=== PATIENT | female | born 1970 | race Caucasian/White ===

== ENCOUNTER 2019-10-09 11:07 | Emergency (ER) | payer BC ==
[~2019-10-09] VITALS: Ht 157.5 cm; Wt 87.0 kg
[2019-10-09] MEDS ORDERED: SODIUM CHLORIDE FLUSH 10ML SYR IVF ONE (11:30)
--- NOTE | 2019-10-09 11:30 | NUR ---
[facility] 49 Y/[facility] F PRESENTS STATING "MY HEART RATE SPIKED UP TO 190, FELT LIKE IT WAS RACING, FELT SHORT OF BREATH, I WAS JUST AT WORK TAKING OUT CARDBOARD, NOTHING CRAZY, IT LASTED ABOUT AN HOUR, JUST STARTING TO RELAX." CONT PULSE OX, BP, CARDIAC MONITORS IN PLACE. SR ON MONITOR, RATE 80-90. VSS. DENIES CP, SOB OR ANY PAIN AT THIS TIME. PT ABLE TO SPEAK IN FULL SENTENCES WITHOUT ANY DIFFICULTY. DR. DELGADO AT BEDSIDE FOR EVALUATION, AWAITING ORDERS. CALL LIGHT IN REACH. FALL PRECAUTIONS IN PLACE. SIDE RAILS UPX2. SPOUSE AT BEDSIDE. WARM BLANKET PROVIDED FOR COMFORT.
[2019-10-09 11:45] LABS: BASOPHILS # (AUTO) 0.03 x10^3/uL (0-0.1); BASOPHILS % (AUTO) 1 % (0-1); EOSINOPHILS # (AUTO) 0.11 x10^3/uL (0-0.4); EOSINOPHILS % (AUTO) 2 % (1-7); LYMPHOCYTES # (AUTO) 1.18 x10^3/uL (1-3.4); LYMPHOCYTES % (AUTO) 18 % (22-44); MD NO; MEAN CORPUSCULAR HEMOGLOBIN 30.9 pg (27.0-34.8); MEAN PLATELET VOLUME 8.1 fL (7.4-10.4); MONOCYTES # (AUTO) 0.41 x10^3/uL (0.2-0.8); MONOCYTES % (AUTO) 6 % (2-9); NEUTROPHILS # (AUTO) 5.03 x10^3/uL (1.8-6.8); NEUTROPHILS % (AUTO) 74 % (42-75); PLATELET COUNT 304 x10^3/uL (130-400); RED CELL DISTRIBUTION WIDTH 13.3 % (9.6-15.2)
--- NOTE | 2019-10-09 11:46 | NUR ---
IV PLACED NOTED PER MD ORDER. LABS DRAWN. AWAITING CT. VSS. SR ON MONITOR. SPOUSE AT BEDSIDE.
[2019-10-09] MEDS ORDERED: NORG1TAB67 PO (11:54)
[2019-10-09] MEDS ORDERED: PANT40TA5 PO (11:54)
[2019-10-09 11:56] LABS: ALANINE AMINOTRANSFERASE 28 U/L (12-78); ALBUMIN 3.3 g/dL (3.4-5.0); ANION GAP 7 mmol/L (5-15); CALCIUM 8.6 mg/dL (8.5-10.1); CHLORIDE 110 mmol/L (98-107); CREATININE 0.92 mg/dL (0.55-1.02)
[2019-10-09 12:00] LABS: ALKALINE PHOSPHATASE 80 U/L (45-117); BILIRUBIN,TOTAL 0.2 mg/dL (0.2-1.0); TOTAL PROTEIN 7.3 g/dL (6.4-8.2); TROPONIN I < 0.015 ng/mL (0.000-0.045)
--- NOTE | 2019-10-09 12:25 | NUR ---
PT TO CT AT THIS TIME
[2019-10-09] MEDS ORDERED: OMNIPAQUE 350 MG/ML, 100ML BOTTLE ONE (12:41)
--- NOTE | 2019-10-09 12:45 | NUR ---
PT BACK FROM CTA. AMBULATORY TO RESTROOM WITH STEADY GAIT. RESTING BACK ON GURNEY ON POSITION OF COMFORT. DENIES ANY PAIN, CP, SOB. MONITORS ON, VSS, SR ON MONITOR. RATE 70-80. CALL LIGHT IN REACH. AWAITING CTA RESULTS AND RECHECK.
--- NOTE | 2019-10-09 13:15 | NUR ---
PT UP FOR RECHECK
--- NOTE | 2019-10-09 13:24 | NUR ---
PT CONTINUES AWAITING RECHECK, RESTING IN POSITION OF COMFORT. DENIES ANY PAIN, CP, SOB AND NEED TO USE RESTROOM. SPOUSE AT BEDSIDE. VSS. SR ON MONITOR. CALL LIGHT IN REACH. FALL PRECAUTIONS IN PLACE.
[2019-10-09 14:10] VITALS: BP 109/72
--- NOTE | 2019-10-09 14:10 | NUR ---
DR. DELGADO AT BEDSIDE, DISCUSSING DISCHARGE POC/INSTRUCTIONS. ALL QUESTIONS ANSWERED BY
== END 2019-10-09 14:15 | disposition home or self-care (01) ==
LOC: ED 12:50
DX: R00.2 Palpitations (principal); R06.00 Dyspnea, unspecified
CPT/HCPCS: 36415; 71275; 80053; 83735; 84484; 85025; 93005; 99284; Q9967